=== PATIENT | female | born 1945 | race Caucasian/White ===

== ENCOUNTER → 2018-11-06 11:29 | Outpatient (CLI) | payer OTHER, SELFPAY ==
--- NOTE | 2018-11-06 | DI.MG.S_ITS ---
BILATERAL DIGITAL SCREENING MAMMOGRAM 3D/2D WITH CAD: 11/06/2018 CLINICAL: Routine screening. Comparison is made to exams dated: 03/22/2017 mammogram, 10/23/2014 mammogram, and 03/18/2014 mammogram - [facility]. There are scattered fibroglandular elements in both breasts. Current study was also evaluated with a Computer Aided Detection (CAD) system. No significant masses, calcifications, or other findings are seen in either breast. There has been no significant interval change. IMPRESSION: NEGATIVE There is no mammographic evidence of malignancy. A 1 year screening mammogram is recommended. This exam was interpreted at Station ID: [id number]. NOTE: For mammograms, a report in lay terms will be sent to the patient. Approximately 15% of breast malignancies will not be visualized mammographically. In the management of a palpable breast mass, a negative mammogram must not discourage biopsy of a clinically suspicious lesion. Electronically Signed By: John barnes/yobany:11/06/2018 12:30:46 letter sent: Normal Exam ACR BI-RADS Category 1: Negative 3341F
== END ==
PROVIDERS: Visit Provider Nurse Practitioner Family
DX: Z12.31 Encounter for screening mammogram for malignant neoplasm of breast (principal)
CPT/HCPCS: 77063; 77067

== ENCOUNTER 2019-08-28 11:38 | Day surgery (SDC) | payer MEDICARE, MEDICAID, SELFPAY ==
[2019-08-28] VITALS (8 sets, daily range): BP systolic 104–133; BP diastolic 61–87; PULSE 82–103; RESP 13–16; TEMP 36.4–36.7; O2SAT 94–99; BMI 31.1
--- NOTE | 2019-08-28 | PATH_ITS ---
[facility] Accession Number: [id number] . 01 Material submitted: . PART A: colon - CECAL POLYP PART B: colon - COLON POLYP AT 15CM . 01 Clinical history: . SCREENING COLONOSCOPY A: ? LIPOMA . 02 Diagnosis: A. Cecal Polyp: Submucosal lipoma. . B. Colon Polyp at 15 cm: Hyperplastic polyp. MRV 08/30/2019 1554 Local . 02 Electronically signed: . Precious Bustos MD, Pathologist NPI- [id number] . 01 Gross description: . Part A: CECAL POLYP: Received in formalin is 1 fragment(s) of clark, soft tissue measuring 1.2 x 0.7 x 0.2 cm which is inked, serially sectioned and submitted entirely in 1 cassette(s) Part B: COLON POLYP AT 15CM: Received in formalin is 1 fragment(s) of clark, soft tissue measuring 0.4 x 0.3 x 0.3 cm which is inked, bisected and submitted entirely in 1 cassette(s) /QBJ 08/29/2019 0338 Local . 02 Pathologist provided ICD-10: K63.5, Z12.11 . 02 CPT . 994961, [id number] Performed at: 01 [facility] [address] [facility][note 3], [place], [place] [id number] MD Go Santana MD Phone: [phone] Performed at: 02 [facility] [address] [place], [place] [id number] MD Sanam Han MD Phone: [phone]
[2019-08-28] MEDS: SODIUM CHLORIDE 0.9% 1,000 ML 200 ML IV (12:21)
--- NOTE | 2019-08-28 12:58 | PM.HP.1 ---
History of Present Illness History of Present Illness Date Patient Seen: 08/28/19 Time Patient Seen: 12:59 Chief complaint: [id number] SCREENING COLONOSCOPY Narrative: This is a 73-year-old woman with history of screening colonoscopy 10 years ago for which she was told to have a follow-up colonoscopy in 10 years. She is here for her follow-up screening. She denies any melena, hematochezia, unexplained weight loss, or unexplained abdominal pain. She has history of diverticulosis, diverticulitis and constipation. She takes medication for high blood pressure. She denies any other major medical problems. She does have obstructive sleep apnea and is awaiting her CPAP machine to be ordered. ROS: Thirteen system review is otherwise negative other than as mentioned below and in HPI. PE: GENERAL: Well groomed and cooperative. Appears stated age. Answers questions promptly and appropriately. Vital signs noted. HENT: Normocephalic, atraumatic. Hearing intact. Oral mucosa is pink and moist. EYES: Conjunctiva pink, sclera white, no periorbital swelling. CARDIOVASCULAR: Regular rate. No pedal edema. RESPIRATORY: Non-tachypneic, breathing comfortably on room air. GASTROINTESTINAL: Abdomen soft and non-distended GENITALURINARY: No flank tenderness. MUSCULOSKELETAL: Equal tone and mass bilaterally. SKIN: Warm, dry, soft, appropriate color for ethnicity. No other lesions, rashes, or wounds. NEURO: Alert and Oriented X 3. No gross sensory deficits, or cognitive issues. PSYCH: Appropriate affect and mood. Patient History Medical History Fatigue (Chronic) Obesity (BMI 30-39.9) (Chronic) Obstructive sleep apnea (Chronic) Surgical History Status post dilation and curettage Status post tubal ligation Family & Social History Family History Grandfather Heart disease Grandmother Stroke Grandfather Heart disease Grandmother Diabetes mellitus Heart disease Social History: household members none Tobacco & Substance use: Smoking Status Never smoker alcohol intake current alcohol intake frequency holiday/special occasion Substance Use Type does not use Meds Home Medications and Allergies Home Medications Medication Instructions Recorded Confirmed Type amlodipine 5 mg PO DAILY 08/28/19 08/28/19 History Allergies Allergy/AdvReac Type Severity Reaction Status Date / Time No Known Allergies Allergy Unknown Uncoded 08/28/19 12:04 Exam Vital Signs (past 8 hours): - 08/28/19 12:05 Temperature 97.5 F L Pulse Rate 103 H Respiratory Rate 16 Blood Pressure 133/87 Pulse Oximetry 98 Oxygen Delivery Method Room Air Assessment & Plan Assessment and plan (1) At average risk for colon cancer: Current visit: Yes Status: Acute Assessment & Plan narrative: This is a 73-year-old woman here for screening colonoscopy. Risks and benefits of colonoscopy were discussed including risk of bleeding, perforation, need for additional procedures. The patient desires to proceed with her colonoscopy procedure. Time Spent With Patient Time with patient: 15-24 minutes Quality VTE Deep Vein Thrombosis/Pulmonary Embolism Present on Admission: No
--- NOTE | 2019-08-28 13:48 | PM.OP.ENDO ---
Operative Date/Time/Diagnoses Date of procedure: 08/28/19 Time of procedure: 13:48 Pre-op diagnosis: Average risk for colon cancer, history of diverticulosis, diverticulitis Post-op diagnosis: other (Pedunculated cecal polyp, likely lipoma. Adenomatous rectal polyp, diverticulosis) Procedure & Clinicians Study performed: Colonoscopy, rectal polypectomy with hot snare, biopsy of pedunculated lipomatous appearing cecal mass Same procedure as scheduled: Yes Indications: Average risk for colon cancer, 10 years since last screening colonoscopy Surgeon: Samira Oseguera Procedure Notes SCOAP/Timeout: Performed Procedure in detail: The patient was brought to the room and placed in left lateral decubitus position with all bony prominences padded. A time-out was performed and then the patient was given procedural sedation starting with [4] mg of Versed and [100] mcg of fentanyl. A total of 4 mg of Versed and 200 micro g of fentanyl were given for the entire procedure. Vitals were monitored throughout the procedure and remained stable. Once adequately sedated the procedure was begun. A rectal exam was performed revealing [no abnormalities]. The colonoscope was then introduced to the rectum and advanced to the cecum in the usual fashion. []The cecum was identified by the appendiceal orifice, the mucosal tri-fold, and the ileocecal valve. There was a large pedunculated mass at the ileocecal valve, which appeared like a submucosal lipoma. It had a wide base, and because of the location in the cecum, and the cecum being very thin walled, the decision was made to biopsy the top of it, rather than trying to transect the entire thing at its base. Hot snare was used to transect it across the middle of the mass, and a large biopsy specimen was retrieved with the endoscopic retrieval net. The there was good hemostasis. The scope was then retracted while rotating side to side and examining each mucosal fold. In the rectum a 1 cm adenomatous appearing polyp was seen at 15 cm from the anal verge, this was removed with hot snare. The patient was noted to have significant diverticulosis throughout the descending and sigmoid colon, but no signs of active diverticulitis. [] At the conclusion of the procedure retroflexion was performed and [small grade 1-2 internal hemorrhoids without stigmata of bleeding were seen]. The scope was then withdrawn from the rectum the procedure was concluded. The patient tolerated the procedure well and was transferred to the PACU in stable condition. Scope withdrawal time: 26 Sedation minutes: 43 Findings: diverticulosis and polyp Specimen(s): other (Biopsy of Lipomatous appearing cecal polyp, adenomatous appearing rectal polyp, completely removed) Complications: none Impression: Pedunculated nonobstructing wide-based polyp in the cecum, which is likely a lipoma, adenomatous appearing rectal polyp, extensive diverticulosis with no signs of active diverticulitis Post-procedure Recommendations: Other recommendation (Follow-up recommendation will depend on biopsy results) Follow up: as needed Disposition: PACU
[2019-08-28] MEDS: MIDAZOLAM 5 MG/5 ML VIAL IV (13:52)
[2019-08-28] MEDS: fentaNYL 250 MCG/5 ML INJ IV (13:53)
== END 2019-08-28 14:30 | disposition home or self-care (01) ==
PROVIDERS: PCP Family Medicine; Referring Provider Family Medicine; Visit Provider Surgery
PROC: 0DJD8ZZ Inspection of Lower Intestinal Tract, Via Natural or Artificial Opening Endoscopic (ICD-10-PCS; CPT 45378; principal; 2019-08-28 13:00)
DX: Z12.11 Encounter for screening for malignant neoplasm of colon (principal); K57.30 Diverticulosis of large intestine without perforation or abscess without bleeding; K63.5 Polyp of colon; D17.5 Benign lipomatous neoplasm of intra-abdominal organs
CPT/HCPCS: 45380; 99152; 99153; J2250; J3010

== ENCOUNTER 2019-12-20 18:10 | Emergency (ER) | payer MEDICARE, MEDICAID, SELFPAY ==
[2019-12-20 18:18] VITALS: BP 168/85; PULSE 104; RESP 15; TEMP 36.1; O2SAT 98; BMI 29.2
--- NOTE | 2019-12-20 19:49 | DI.US.S_ITS ---
PROCEDURE: US PERIPH VENOUS LOW EXTREM BI INDICATIONS: EDEMA TECHNIQUE: Real-time imaging, as well as color and pulse Doppler interrogation, were performed of the deep veins of both legs from the inguinal ligament to the popliteal fossa. COMPARISON: None. FINDINGS: Right: The common femoral, femoral and popliteal veins are normally compressible, and free of intraluminal thrombus. Color and pulse Doppler demonstrate normal phasic intravascular flow. There is normal augmentation response to distal compression maneuver. Left: The common femoral, femoral and popliteal veins are normally compressible, and free of intraluminal thrombus. Color and pulse Doppler demonstrate normal phasic intravascular flow. There is normal augmentation response to distal compression maneuver. IMPRESSION: No evidence of bilateral lower extremity DVT. Dictated by: Cari Martinez M.D. on 12/20/2019 at 21:13 Approved by: Cari Martinez M.D. on 12/20/2019 at 21:13
--- NOTE | 2019-12-20 19:52 | ED_ITS ---
HPI - Extremity Problem <Rell Otero MD - Last Filed: 12/21/19 07:59> General Chief complaint: Extremity Problem,Nontraumatic Stated complaint: swelling left leg Time Seen by Provider: 12/20/19 19:44 Source: patient Mode of arrival: Ambulatory Limitations: no limitations History of Present Illness HPI Narrative: CC: Asymmetrical swelling of her legs. HPI: The patient is a 74-year-old female who denies that she has had any chest pain cough shortness of breath difficulty in breathing, history of congestive heart failure myocardial infarction who was sent to the emergency department to be evaluated for asymmetrical swelling of her leg by Dr. Vázquez from [facility]. The patient denies any fall or injury to her legs. She denies a history of kidney failure. She has had no shortness of breath and no chest pain. She has had no fever chills or sweats. She has had no abdominal pain nausea or vomiting. She denies any urinary symptomatology. Related Data Home Medications Medication Instructions Recorded Confirmed amlodipine 5 mg PO DAILY 08/28/19 08/28/19 Allergies Allergy/AdvReac Type Severity Reaction Status Date / Time No Known Drug Allergies Allergy Verified 12/20/19 18:18 Review of Systems <Rell Otero MD - Last Filed: 12/21/19 07:59> Review of Systems Narrative: Review of systems were all negative except for those mentioned in the history of present illness. Patient History <Rell Otero MD - Last Filed: 12/21/19 07:59> Medical History Fatigue (Chronic) Obesity (BMI 30-39.9) (Chronic) Obstructive sleep apnea (Chronic) Surgical History Status post dilation and curettage Status post tubal ligation Family History Grandfather Heart disease Grandmother Stroke Grandfather Heart disease Grandmother Diabetes mellitus Heart disease Social History household members: none Smoking Status: Never smoker alcohol intake: current Smoking Status: Never smoker alcohol intake frequency: holidays/special occasions only Substance Use Type: does not use Exam <Rell Otero MD - Last Filed: 12/21/19 07:59> Narrative Exam Narrative: PHYSICAL EXAM: CONSTITUTIONAL: Awake, Alert, Oriented, Coherent, Cooperative in NAD. Does not appear toxic or ill. HEAD: AT/NC EENT: PERRL, FROM of eyes, no discharge, no nystagmus NECK: Supple, no obvious JVD, Trachea is midline without stridor, no palpable LN. SPINE: Palpationof the cervical, Thoracic, Lumbar or Sacral spine reveals no gross deformity or tenderness. No CVA tenderness. THORAX: No deformity, retractions, chest wall tenderness. LUNGS: Clear, symmetrical breath sounds without respiratory distress. HEART: Normal heart tones, regular rhythm and rate without murmur. ABDOMEN: Soft, non-tender, normal bowel sounds without guarding, rebound, rigidity or palpable mass. EXTREMITIES: The patient has asymmetrical swelling of her legs. The left leg is more swollen than the right leg. There is no significant calf tenderness on palpation of either leg. The patient has trace pitting edema bilaterally. SKIN: No rash, bruising, petechiae or purpura. NEURO: Awake, alert, oriented, conversive, cranial nerves II-XII are symmetrical , moves all 4 extremities and is ambulatory. Initial Vital Signs Initial Vital Signs: Vital Signs Temperature 97.0 F L 12/20/19 18:18 Pulse Rate 104 H 12/20/19 18:18 Respiratory Rate 15 12/20/19 18:18 Blood Pressure 168/85 H 12/20/19 18:18 Pulse Oximetry 98 12/20/19 18:18 <Pete Rose MD - Last Filed: 12/21/19 01:24> Initial Vital Signs Initial Vital Signs: Vital Signs Temperature 97.0 F L 12/20/19 18:18 Pulse Rate 104 H 12/20/19 18:18 Respiratory Rate 15 12/20/19 18:18 Blood Pressure 168/85 H 12/20/19 18:18 Pulse Oximetry 98 12/20/19 18:18 Course <Rell Otero MD - Last Filed: 12/21/19 07:59> Course Course Narrative: [address] 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 The patient will be discharged home to be seen in follow-up by Dr. Vázquez. The patient does not have an elevated BNP and her kidney function is normal. The patient will be placed on a 2 L fluid restriction and follow-up with her primary care physician. Orders Ordered: ED Orders 12/20/19 19:49 perip venous low extrem bi Stat 12/20/19 20:00 Basic Metabolic Panel Stat Complete Blood Count AUTO DIFF Stat NT-proBNP (BNP-Adult 18+) Stat Vital Signs Vital signs: Vital Signs - 8 hr 12/20/19 18:18 12/20/19 19:56 12/20/19 21:10 Temperature 97.0 F L Pulse Rate 104 H 76 Pulse Rate [Left Dorsalis Pedis] 78 Respiratory Rate 15 18 Blood Pressure 168/85 H Blood Pressure [Right Arm] 142/87 H Pulse Oximetry 98 98 <Pete Rose MD - Last Filed: 12/21/19 01:24> Orders Ordered: ED Orders 12/20/19 19:49 [facility] venous low extrem bi Stat 12/20/19 20:00 Basic Metabolic Panel Stat Complete Blood Count AUTO DIFF Stat NT-proBNP (BNP-Adult 18+) Stat Vital Signs Vital signs: Vital Signs - 8 hr 12/20/19 18:18 12/20/19 19:56 12/20/19 21:10 Temperature 97.0 F L Pulse Rate 104 H 76 Pulse Rate [Left Dorsalis Pedis] 78 Respiratory Rate 15 18 Blood Pressure 168/85 H Blood Pressure [Right Arm] 142/87 H Pulse Oximetry 98 98 MDM - Extremity (Nontraumatic) <Rell Otero MD - Last Filed: 12/21/19 07:59> Lab Data Result diagrams: 12/20/19 20:00 12/20/19 20:00 Labs: Lab Results 12/20/19 12/20/19 Range/Units 20:00 20:00 WBC 6.0 (4.5-11.0) X10^3/uL RBC 4.00 (4.0-5.2) X10^6/uL Hgb 12.4 (12.0-16.0) g/dL Hct 36.6 (36-46) % MCV 91.5 (80-100) fL MCH 31.1 (26-34) PG MCHC 34.0 (30-36) % RDW 13.7 (11.6-14.8) % Plt Count 221 (150-400) X10^3/uL Neut % (Auto) 62.2 (50-75) % Lymph % (Auto) 29.1 (25-40) % [place] % (Auto) 6.4 (3-14) % Eos % (Auto) 1.4 L (2-4) % Baso % (Auto) 0.9 (0-2) % Neut # (Auto) 3700 (0903-9678) /uL Lymph # (Auto) 1700 (4245-7039) /uL [place] # (Auto) 400 (0-900) /uL Eos # (Auto) 100 (0-450) /uL Baso # (Auto) 100 (0-100) /uL Sodium 138 (137-145) mmol/L Potassium 4.3 (3.4-5.1) mmol/L Chloride 105 (98-107) mmol/L Carbon Dioxide 26 (22-32) mmol/L BUN 15 (7-17) mg/dL Creatinine 0.61 (0.52-1.04) mg/dL Estimated GFR > 60.0 (>60) mL/min BUN/Creatinine Ratio 24.6 H (6-22) Glucose 98 (80-110) mg/dL Calcium 9.2 (8.4-10.2) mg/dL NT-Pro-B Natriuret Pep 56 (<450) pg/mL <Pete Rose MD - Last Filed: 12/21/19 01:24> Lab Data Labs: Lab Results 12/20/19 12/20/19 Range/Units 20:00 20:00 WBC 6.0 (4.5-11.0) X10^3/uL RBC 4.00 (4.0-5.2) X10^6/uL Hgb 12.4 (12.0-16.0) g/dL Hct 36.6 (36-46) % MCV 91.5 (80-100) fL MCH 31.1 (26-34) PG MCHC 34.0 (30-36) % RDW 13.7 (11.6-14.8) % Plt Count 221 (150-400) X10^3/uL Neut % (Auto) 62.2 (50-75) % Lymph % (Auto) 29.1 (25-40) % [place] % (Auto) 6.4 (3-14) % Eos % (Auto) 1.4 L (2-4) % Baso % (Auto) 0.9 (0-2) % Neut # (Auto) 3700 (9952-7635) /uL Lymph # (Auto) 1700 (4146-4711) /uL [place] # (Auto) 400 (0-900) /uL Eos # (Auto) 100 (0-450) /uL Baso # (Auto) 100 (0-100) /uL Sodium 138 (137-145) mmol/L Potassium 4.3 (3.4-5.1) mmol/L Chloride 105 (98-107) mmol/L Carbon Dioxide 26 (22-32) mmol/L BUN 15 (7-17) mg/dL Creatinine 0.61 (0.52-1.04) mg/dL Estimated GFR > 60.0 (>60) mL/min BUN/Creatinine Ratio 24.6 H (6-22) Glucose 98 (80-110) mg/dL Calcium 9.2 (8.4-10.2) mg/dL NT-Pro-B Natriuret Pep 56 (<450) pg/mL MDM Narrative Medical decision making narrative: The patient was evaluated by Dr Otero prior to change of shift. The plan was for me to review the ultrasound result and complete the patient's care. However, Dr. Otero completed care prior to his departure from the hospital. I did not see this patient. Discharge Plan Departure Patient Disposition: Home Clinical Impression: Left leg swelling Discharge Date/Time: 12/20/19 21:39 Instructions: DI for Peripheral Edema, Unilateral Activity Restrictions/Additional Instructions: 1. Your kidney function, electrolytes, and BNP ( a measure of Congestive heart Failure) are all within normal limits. You need to follow-up with Dr. Vázquez for his recommendations. 2. Ultrasounds of both legs were performed which did not reveal any evidence of a blood clot in either leg. 3. Until you are able to see Dr. Vázquez you need to restrict your total fluid intake to 2 L per day and elevate your legs as often as possible to lower the swelling in your legs. Prescriptions: No Action amlodipine 5 mg Tablet 5 mg PO DAILY RF: 0 Referrals: Kelly Rosa MD [Primary Care Provider] -
[2019-12-20 19:56] VITALS: PULSE 78
--- NOTE | 2019-12-20 19:58 | PC.NURSE ---
pt reports she felt like she may have pulled her left calf two weeks ago while working in the garden. increase swelling and pain noted since then. Swelling is less in the morning upon waking and worsens through the day. patient is able to bear weight just reports tightness Patient denies chest pain or SOB. Denies fevers or chills. No obvious redness noted.
[2019-12-20 20:15] LABS: Add Manual Diff / Slide Review NO; Basophils Absolute Auto 100 /uL (0-100); Basophils Percent Auto 0.9 % (0-2); Eosinophils Absolute Auto 100 /uL (0-450); Eosinophils Percent Auto 1.4 % (2-4); Hematocrit 36.6 % (36-46); Hemoglobin 12.4 g/dL (12.0-16.0); Lymphocytes Absolute Auto 1700 /uL (1100-4500); Lymphocytes Percent Auto 29.1 % (25-40); Mean Corpuscular Hemoglobin 31.1 PG (26-34); Mean Corpuscular Volume 91.5 fL (80-100); Monocytes Absolute Auto 400 /uL (0-900); Monocytes Percent Auto 6.4 % (3-14); Neutrophils Absolute Auto 3700 /uL (1500-7000); Neutrophils Percent Auto 62.2 % (50-75); Platelet Count 221 X10^3/uL (150-400); Red Cell Distribution Width 13.7 % (11.6-14.8)
[2019-12-20 20:27] LABS: BUN Creatinine Ratio 24.6 (6-22); Blood Urea Nitrogen 15 mg/dL (7-17); Calcium 9.2 mg/dL (8.4-10.2); Carbon Dioxide 26 mmol/L (22-32); Chloride 105 mmol/L (98-107); Estimated Glomerular Filt Rate > 60.0 mL/min (>60); Glucose 98 mg/dL (80-110); HEMOLYSIS < 15 (0-50); Potassium 4.3 mmol/L (3.4-5.1); Sodium 138 mmol/L (137-145)
[2019-12-20 20:36] LABS: NT-proBNP (BNP-Adult 18+) 56 pg/mL (<450)
[2019-12-20 21:10] VITALS: BP 142/87; PULSE 76; RESP 18; O2SAT 98
== END 2019-12-20 21:39 | disposition home or self-care (01) ==
PROVIDERS: Emergency Provider Emergency Medicine; PCP Family Medicine
DX: M79.89 Other specified soft tissue disorders (principal); I50.9 Heart failure, unspecified; I25.2 Old myocardial infarction
CPT/HCPCS: 36415; 80048; 83880; 85025; 93970; 99281; 99284

== ENCOUNTER → 2020-12-05 10:31 | Outpatient (CLI) | payer MEDICARE, MEDICAID, SELFPAY ==
[2020-12-05 19:33] LABS: Alanine Aminotransferase 18 IU/L (<35); Albumin Globulin Ratio 1.5 (1.0-2.8); Alkaline Phosphatase 85 U/L (38-126); Aspartate Aminotransferase 22 IU/L (14-36); BUN Creatinine Ratio 32.3 (6-22); Bilirubin Total 0.5 mg/dL (0.2-1.3); Blood Urea Nitrogen 20 mg/dL (7-17); Calcium 8.9 mg/dL (8.4-10.2); Carbon Dioxide 25 mmol/L (22-32); Chloride 105 mmol/L (98-107); Cholesterol 249 mg/dL (140-199); Estimated Glomerular Filt Rate > 60.0 mL/min (>60); Globulin 2.7 g/dL (1.7-4.1); Glucose 107 mg/dL (80-110); HDL Cholesterol 50 mg/dL (40-60); HEMOLYSIS < 15 (0-50); LDL Cholesterol Calculated 170 mg/dL (<100); Potassium 4.4 mmol/L (3.4-5.1); Sodium 139 mmol/L (137-145); Total Protein 6.7 g/dL (6.3-8.2); Triglycerides 143 mg/dL (35-150)
[2020-12-05 19:42] LABS: Add Manual Diff / Slide Review NO; Basophils Absolute Auto 0 /uL (0-100); Basophils Percent Auto 1.1 % (0-2); Eosinophils Absolute Auto 100 /uL (0-450); Eosinophils Percent Auto 2.5 % (2-4); Hematocrit 36.1 % (36-46); Hemoglobin 12.1 g/dL (12.0-16.0); Lymphocytes Absolute Auto 1500 /uL (1100-4500); Lymphocytes Percent Auto 34.8 % (25-40); Mean Corpuscular HGB Conc 33.5 % (30-36); Mean Corpuscular Hemoglobin 30.7 PG (26-34); Mean Corpuscular Volume 91.5 fL (80-100); Monocytes Absolute Auto 300 /uL (0-900); Monocytes Percent Auto 6.9 % (3-14); Neutrophils Absolute Auto 2300 /uL (1500-7000); Neutrophils Percent Auto 54.7 % (50-75); Platelet Count 214 X10^3/uL (150-400); Red Blood Cell Count 3.95 X10^6/uL (4.0-5.2); Red Cell Distribution Width 13.3 % (11.6-14.8); White Blood Cell Count 4.3 X10^3/uL (4.5-11.0)
[2020-12-05 20:03] LABS: Hemoglobin A1C% w Est Avg Glu 5.7 % (4.0-6.0); TSH w/ Reflex to FT4 2.52 uIU/mL (0.47-4.68)
== END ==
PROVIDERS: PCP Family Medicine; Visit Provider Family Medicine
DX: E78.5 Hyperlipidemia, unspecified (principal); M85.89 Other specified disorders of bone density and structure, multiple sites; R03.0 Elevated blood-pressure reading, without diagnosis of hypertension; R73.03 Prediabetes
CPT/HCPCS: 80053; 80061; 83036; 84443; 85025

== ENCOUNTER → 2021-01-06 12:37 | Outpatient (CLI) | payer MEDICARE, MEDICAID, SELFPAY | PROVIDERS: PCP Family Medicine; Referring Provider Family Medicine; Visit Provider Family Medicine | DX: M85.852 Other specified disorders of bone density and structure, left thigh (principal); Z78.0 Asymptomatic menopausal state | CPT/HCPCS: 77080 ==

== ENCOUNTER → 2021-04-29 09:45 | Outpatient (CLI) | payer MEDICARE, MEDICAID, SELFPAY ==
[2021-04-29 19:04] LABS: Cholesterol 237 mg/dL (140-199); HDL Cholesterol 49 mg/dL (40-60); LDL Cholesterol Calculated 134 mg/dL (<100); Triglycerides 271 mg/dL (35-150)
== END ==
PROVIDERS: PCP Family Medicine; Visit Provider Family Medicine
DX: Z00.00 Encounter for general adult medical examination without abnormal findings (principal)
CPT/HCPCS: 80061

== ENCOUNTER → 2022-03-15 13:05 | Outpatient (CLI) | payer MEDICARE, MEDICAID, SELFPAY ==
[2022-03-15 20:36] LABS: Hep C Virus Ab w/Reflex Quant NEGATIVE s/c (NEGATIVE)
== END ==
PROVIDERS: PCP Family Medicine; Visit Provider Physician Assistant
DX: Z11.59 Encounter for screening for other viral diseases (principal)
CPT/HCPCS: 86803

== ENCOUNTER → 2022-05-10 11:44 | Outpatient (CLI) | payer MEDICARE, MEDICAID, SELFPAY ==
[2022-05-10 20:19] LABS: Alanine Aminotransferase 21 IU/L (<35); Albumin 4.2 g/dL (3.5-5.0); Albumin Globulin Ratio 1.4 (1.0-2.8); Alkaline Phosphatase 80 U/L (38-126); Aspartate Aminotransferase 30 IU/L (14-36); BUN Creatinine Ratio 29.2 (6-22); Bilirubin Total 0.6 mg/dL (0.2-1.3); Blood Urea Nitrogen 21 mg/dL (7-17); Calcium 8.4 mg/dL (8.4-10.2); Carbon Dioxide 28 mmol/L (22-32); Chloride 103 mmol/L (98-107); Cholesterol 273 mg/dL (140-199); Estimated Glomerular Filt Rate > 60 mL/min (>60); Glucose 111 mg/dL (80-110); HDL Cholesterol 39 mg/dL (40-60); HEMOLYSIS < 15 (0-50); LDL Cholesterol Calculated 198 mg/dL (<100); Potassium 4.5 mmol/L (3.4-5.1); Sodium 138 mmol/L (137-145); Total Protein 7.2 g/dL (6.3-8.2); Triglycerides 181 mg/dL (35-150)
== END ==
PROVIDERS: PCP Family Medicine; Visit Provider Family Medicine
DX: E78.5 Hyperlipidemia, unspecified (principal); R03.0 Elevated blood-pressure reading, without diagnosis of hypertension
CPT/HCPCS: 80053; 80061

== ENCOUNTER → 2022-07-27 10:02 | Outpatient (CLI) | payer MEDICARE, MEDICAID, SELFPAY ==
[2022-07-27 19:35] LABS: Hemoglobin A1C% w Est Avg Glu 5.9 % (4.0-6.0)
[2022-07-27 19:38] LABS: Add Manual Diff / Slide Review NO; Alanine Aminotransferase 24 IU/L (<35); Albumin 4.2 g/dL (3.5-5.0); Albumin Globulin Ratio 1.5 (1.0-2.8); Alkaline Phosphatase 89 U/L (38-126); Aspartate Aminotransferase 22 IU/L (14-36); BUN Creatinine Ratio 32.4 (6-22); Basophils Absolute Auto 100 /uL (0-100); Basophils Percent Auto 1.1 % (0-2); Bilirubin Total 0.5 mg/dL (0.2-1.3); Blood Urea Nitrogen 22 mg/dL (7-17); Calcium 8.4 mg/dL (8.4-10.2); Carbon Dioxide 27 mmol/L (22-32); Chloride 102 mmol/L (98-107); Cholesterol 196 mg/dL (140-199); Eosinophils Absolute Auto 100 /uL (0-450); Estimated Glomerular Filt Rate > 60 mL/min (>60); Globulin 2.8 g/dL (1.7-4.1); Glucose 105 mg/dL (80-110); HDL Cholesterol 44 mg/dL (40-60); HEMOLYSIS < 15 (0-50); Hematocrit 36.6 % (36-46); Hemoglobin 12.2 g/dL (12.0-16.0); LDL Cholesterol Calculated 128 mg/dL (<100); Lymphocytes Absolute Auto 1300 /uL (1100-4500); Lymphocytes Percent Auto 28.5 % (25-40); Mean Corpuscular HGB Conc 33.3 % (30-36); Mean Corpuscular Hemoglobin 30.5 PG (26-34); Mean Corpuscular Volume 91.4 fL (80-100); Monocytes Absolute Auto 300 /uL (0-900); Monocytes Percent Auto 6.7 % (3-14); Neutrophils Absolute Auto 2800 /uL (1500-7000); Neutrophils Percent Auto 61.7 % (50-75); Platelet Count 188 X10^3/uL (150-400); Potassium 4.5 mmol/L (3.4-5.1); Red Cell Distribution Width 13.2 % (11.6-14.8); Sodium 138 mmol/L (137-145); Triglycerides 121 mg/dL (35-150); White Blood Cell Count 4.6 X10^3/uL (4.5-11.0)
== END ==
PROVIDERS: PCP Family Medicine; Visit Provider Family Medicine
DX: E78.5 Hyperlipidemia, unspecified (principal); R03.0 Elevated blood-pressure reading, without diagnosis of hypertension; R73.03 Prediabetes
CPT/HCPCS: 80053; 80061; 83036; 85025

== ENCOUNTER → 2022-07-29 12:17 | Outpatient (CLI) | payer MEDICARE, MEDICAID, SELFPAY ==
--- NOTE | 2022-07-29 12:18 | DI.MG.S_ITS ---
BILATERAL DIGITAL SCREENING MAMMOGRAM 3D/2D WITH CAD: 07/29/2022 CLINICAL: Routine screening. Comparison is made to exams dated: 11/06/2018 mammogram, 03/22/2017 mammogram, 10/23/2014 mammogram, 03/28/2014 mammogram - [facility], and 05/06/2020 mammogram - outside. There are scattered areas of fibroglandular density in both breasts (category b / 25%-50% glandular tissue). Current study was also evaluated with a Computer Aided Detection (CAD) system. No significant masses, calcifications, or other findings are seen in either breast. There has been no significant interval change. IMPRESSION: NEGATIVE There is no mammographic evidence of malignancy. A 1 year screening mammogram is recommended. Based on the Tyrer Cuzick model (a risk assessment model) the patient's lifetime risk is 2.0% and her 10 year risk is 0.0%. According to the ACR, ACS, and NCCN guidelines, an annual breast MRI exam along with mammogram is recommended if the patient's lifetime risk is 20% or greater. This exam was interpreted at Station ID: [id number]. NOTE: For mammograms, a report in lay terms will be sent to the patient. Approximately 15% of breast malignancies will not be visualized mammographically. In the management of a palpable breast mass, a negative mammogram must not discourage biopsy of a clinically suspicious lesion. Electronically Signed By: Jose Angel Toth M.D., jr/yobany:07/29/2022 12:38:52 letter sent: Normal Exam ACR BI-RADS Category 1: Negative 3341F
== END ==
PROVIDERS: PCP Family Medicine; Referring Provider Family Medicine; Visit Provider Family Medicine
DX: Z12.31 Encounter for screening mammogram for malignant neoplasm of breast (principal)
CPT/HCPCS: 77063; 77067

== ENCOUNTER → 2023-08-08 13:28 | Outpatient (CLI) | payer OTHER, MEDICAID, SELFPAY ==
[2023-08-08 19:18] LABS: Alanine Aminotransferase 16 IU/L (<35); Albumin Globulin Ratio 1.4 (1.0-2.8); Alkaline Phosphatase 75 U/L (38-126); Aspartate Aminotransferase 21 IU/L (14-36); BUN Creatinine Ratio 29.9 (6-22); Bilirubin Total 0.6 mg/dL (0.2-1.3); Blood Urea Nitrogen 20 mg/dL (7-17); Calcium 9.2 mg/dL (8.4-10.2); Carbon Dioxide 27 mmol/L (22-32); Chloride 102 mmol/L (98-107); Estimated Glomerular Filt Rate > 60 mL/min (>60); Globulin 2.9 g/dL (1.7-4.1); Glucose 93 mg/dL (80-110); HEMOLYSIS < 15 (0-50); Potassium 4.3 mmol/L (3.4-5.1); Sodium 136 mmol/L (137-145); Total Protein 6.9 g/dL (6.3-8.2)
[2023-08-08 19:31] LABS: LDL Cholesterol Direct 108 mg/dL (<100)
[2023-08-08 20:04] LABS: Hemoglobin A1C% w Est Avg Glu 5.9 % (4.0-6.0)
== END ==
PROVIDERS: PCP Family Medicine; Visit Provider Family Medicine
DX: R73.03 Prediabetes (principal); R03.0 Elevated blood-pressure reading, without diagnosis of hypertension; R74.01 Elevation of levels of liver transaminase levels; E78.2 Mixed hyperlipidemia
CPT/HCPCS: 80053; 83036; 83721

== ENCOUNTER → 2023-12-09 14:18 | Outpatient (CLI) | payer MEDICARE, MEDICAID, SELFPAY ==
--- NOTE | 2023-12-09 14:20 | DI.MG.S_ITS ---
BILATERAL DIGITAL SCREENING MAMMOGRAM 3D/2D WITH CAD: 12/09/2023 CLINICAL: Routine screening. Family history of breast cancer. Comparison is made to exams dated: 07/29/2022 mammogram - [facility], 05/06/2020 mammogram - outside, and 11/06/2018 mammogram - [facility]. Both breasts are heterogeneously dense, which may obscure small masses (category c / 51-75% glandular tissue). Current study was also evaluated with a Computer Aided Detection (CAD) system. No significant masses, calcifications, or other findings are seen in either breast. There has been no significant interval change. IMPRESSION: NEGATIVE There is no mammographic evidence of malignancy. A 1 year screening mammogram is recommended. Based on the Tyrer Cuzick model (a risk assessment model) the patient's lifetime risk is 4.3% and her 10 year risk is 0.0%. According to the ACR, ACS, and NCCN guidelines, an annual breast MRI exam along with mammogram is recommended if the patient's lifetime risk is 20% or greater. This exam was interpreted at Station ID: [id number]. NOTE: For mammograms, a report in lay terms will be sent to the patient. Approximately 15% of breast malignancies will not be visualized mammographically. In the management of a palpable breast mass, a negative mammogram must not discourage biopsy of a clinically suspicious lesion. Electronically Signed By: Aldo saxena/yobany:12/09/2023 15:11:41 letter sent: Normal Exam ACR BI-RADS Category 1: Negative 3341F
== END ==
PROVIDERS: PCP Family Medicine; Referring Provider Family Medicine; Visit Provider Family Medicine
DX: Z12.31 Encounter for screening mammogram for malignant neoplasm of breast (principal); Z80.3 Family history of malignant neoplasm of breast; R92.333 Mammographic heterogeneous density, bilateral breasts
CPT/HCPCS: 77063; 77067

== ENCOUNTER → 2024-05-07 13:34 | Outpatient (CLI) | payer MEDICARE, MEDICAID, SELFPAY | PROVIDERS: PCP Family Medicine; Visit Provider Family Medicine | DX: N39.0 Urinary tract infection, site not specified (principal) | CPT/HCPCS: 87077; 87086; 87186 ==

== ENCOUNTER → 2024-09-05 09:02 | Outpatient (CLI) | payer OTHER, MEDICAID, SELFPAY ==
[2024-09-05 21:53] LABS: Add Manual Diff / Slide Review NO; Basophils Absolute Auto 0 /uL (0-100); Basophils Percent Auto 0.9 % (0-2); Eosinophils Absolute Auto 100 /uL (0-450); Eosinophils Percent Auto 3.1 % (2-4); Hematocrit 38.6 % (36-46); Hemoglobin 12.9 g/dL (12.0-16.0); Lymphocytes Absolute Auto 1400 /uL (1100-4500); Lymphocytes Percent Auto 34.9 % (25-40); Mean Corpuscular HGB Conc 33.5 % (30-36); Mean Corpuscular Hemoglobin 30.8 PG (26-34); Monocytes Absolute Auto 300 /uL (0-900); Monocytes Percent Auto 6.8 % (3-14); Neutrophils Absolute Auto 2200 /uL (1500-7000); Neutrophils Percent Auto 54.3 % (50-75); Platelet Count 208 X10^3/uL (150-400); Red Cell Distribution Width 13.9 % (11.6-14.8); White Blood Cell Count 4.1 X10^3/uL (4.5-11.0)
[2024-09-05 22:12] LABS: Alanine Aminotransferase 26 IU/L (<35); Albumin 4.4 g/dL (3.5-5.0); Albumin Globulin Ratio 1.8 (1.0-2.8); Alkaline Phosphatase 84 U/L (38-126); Aspartate Aminotransferase 32 IU/L (14-36); Bilirubin Total 0.8 mg/dL (0.2-1.3); Blood Urea Nitrogen 17 mg/dL (7-17); Carbon Dioxide 28 mmol/L (22-32); Chloride 103 mmol/L (98-107); Cholesterol 224 mg/dL (140-199); Estimated Glomerular Filt Rate > 60 mL/min (>60); Globulin 2.4 g/dL (1.7-4.1); Glucose 114 mg/dL (80-110); HDL Cholesterol 44 mg/dL (40-60); HEMOLYSIS 20 (0-50); LDL Cholesterol Calculated 136 mg/dL (<100); Potassium 4.2 mmol/L (3.4-5.1); Sodium 138 mmol/L (137-145); Total Protein 6.8 g/dL (6.3-8.2); Triglycerides 220 mg/dL (35-150)
[2024-09-05 22:18] LABS: Hemoglobin A1C% w Est Avg Glu 5.6 % (4.0-6.0)
[2024-09-05 22:34] LABS: Thyroid Stimulating Hormone 3.65 uIU/mL (0.47-4.68)
== END ==
PROVIDERS: PCP Family Medicine; Visit Provider Family Medicine
DX: I10 Essential (primary) hypertension (principal); E78.2 Mixed hyperlipidemia; G47.33 Obstructive sleep apnea (adult) (pediatric); R73.03 Prediabetes; E66.9 Obesity, unspecified
CPT/HCPCS: 80053; 80061; 83036; 84443; 85025

== ENCOUNTER → 2024-10-17 10:31 | Outpatient (CLI) | payer OTHER, MEDICAID, SELFPAY ==
--- NOTE | 2024-10-17 10:34 | DI.RAD.S_ITS ---
PROCEDURE: XR DEXA AXIAL SKELETON INDICATIONS: osteopenia COMPARISON: [facility], , XR DEXA AXIAL SKELETON, 01/06/2021, 12:58. FINDINGS: Lumbar Spine: Bone mineral density 1.088 g/cm2, T score 0.4 compared to 1.9. Left Femoral Neck: Bone mineral density 0.584 g/cm2, T score -2.4 compared to -1.9. Left Hip: Bone mineral density are 0.814 g/cm2, T score -1.0 compared to -1.2. Fracture Risk Calculation (when applicable): 10-year fracture risk of a major osteoporotic fracture 32 percent and of a hip fracture 22 percent. (T score greater or equal to -1.0 to: NORMAL) (T score from -1.1 to -2.4: OSTEOPENIA) (T score less than or equal to -2.5: OSTEOPOROSIS) IMPRESSION: Visual bone mineral density loss most prominent in the femoral neck now severe osteopenia. Follow-up guidelines as follows: Osteoporosis: Consider a repeat DEXA and Vertebral Fracture Assessment (VFA) exam in 2 years or sooner if medically necessary, to reassess this patient's status. Osteopenia: Consider a repeat DEXA in 2-3 years to reassess this patient's status, or if there is a new clinical indication. Normal: Consider a repeat DEXA in 5 years or sooner, or if there is a new clinical indication. All treatment decisions require clinical judgment and consideration of individual patient factors, including patient preferences, comorbidities, previous drug use, risk factors not captured in the FRAX model (e.g., frailty, falls, vitamin D deficiency, increased bone turnover, interval significant decline in bone density ) and possible under- or over-estimation of fracture risk by FRAX. In addition, the NOF Guide recommends that FDA-approved medical therapies be considered in postmenopausal women and men age >= 50 years with a: * Hip or vertebral (clinical or morphometric) fracture * T-score of <=-2.5 at the spine or hip * Ten-year fracture probability by FRAX of >= 3% for hip fracture or >=20% for major osteoporotic fracture. Dictated by: Keily Navarro M.D. on 10/17/2024 at 12:48 Approved by: Keily Navarro M.D. on 10/17/2024 at 12:49
== END ==
PROVIDERS: PCP Family Medicine; Referring Provider Family Medicine; Visit Provider Family Medicine
DX: M85.852 Other specified disorders of bone density and structure, left thigh (principal); Z78.0 Asymptomatic menopausal state
CPT/HCPCS: 77080

== ENCOUNTER → 2025-04-30 10:55 | Outpatient (CLI) | payer OTHER, MEDICAID, SELFPAY ==
[2025-04-30 18:53] LABS: Add Manual Diff / Slide Review NO; Hematocrit 35.4 % (36-46); Hemoglobin 12.1 g/dL (12.0-16.0); Lymphocytes Absolute Auto 1500 /uL (1100-4500); Mean Corpuscular HGB Conc 34.0 % (30-36); Mean Corpuscular Hemoglobin 30.9 PG (26-34); Mean Corpuscular Volume 90.9 fL (80-100); Platelet Count 205 X10^3/uL (150-400)
[2025-04-30 19:20] LABS: Alanine Aminotransferase 21 IU/L (<35); Albumin 4.2 g/dL (3.5-5.0); Albumin Globulin Ratio 1.7 (1.0-2.8); Alkaline Phosphatase 82 U/L (38-126); Blood Urea Nitrogen 20 mg/dL (7-17); Calcium 8.6 mg/dL (8.4-10.2); Carbon Dioxide 28 mmol/L (22-32); Chloride 99 mmol/L (98-107); Estimated Glomerular Filt Rate > 60 mL/min (>60); Globulin 2.5 g/dL (1.7-4.1); Glucose 133 mg/dL (70-99); HEMOLYSIS < 15 (0-50); Potassium 4.2 mmol/L (3.4-5.1); Sodium 136 mmol/L (137-145); Total Protein 6.7 g/dL (6.3-8.2)
== END ==
PROVIDERS: PCP Family Medicine; Visit Provider Family Medicine
DX: E78.2 Mixed hyperlipidemia (principal); I10 Essential (primary) hypertension; Z12.39 Encounter for other screening for malignant neoplasm of breast; M85.80 Other specified disorders of bone density and structure, unspecified site
CPT/HCPCS: 80053; 83721; 85025

== ENCOUNTER → 2025-05-14 12:58 | Outpatient (CLI) | payer OTHER, MEDICAID, SELFPAY ==
[2025-05-14 19:15] LABS: Hematocrit 36.0 % (36-46); Hemoglobin 12.1 g/dL (12.0-16.0); Mean Corpuscular HGB Conc 33.8 % (30-36); Mean Corpuscular Hemoglobin 30.9 PG (26-34); Mean Corpuscular Volume 91.5 fL (80-100); Platelet Count 205 X10^3/uL (150-400)
[2025-05-14 19:25] LABS: HEMOLYSIS 16 (0-50); Iron 108 ug/dL (37-170)
[2025-05-14 19:30] LABS: Hemoglobin A1C% w Est Avg Glu 5.9 % (4.0-6.0)
[2025-05-14 19:44] LABS: Percent Iron Saturation 31 % (15-50); Total Iron Binding Capacity 352 ug/dL (265-497); Transferrin 306 mg/dL (206-381)
[2025-05-14 20:42] LABS: Folate 19.2 ng/mL (2.76-20.0); Vitamin B12 592 pg/mL (239-931)
== END ==
PROVIDERS: PCP Family Medicine; Visit Provider Family Medicine
DX: D64.9 Anemia, unspecified (principal); I10 Essential (primary) hypertension; E78.5 Hyperlipidemia, unspecified; R73.9 Hyperglycemia, unspecified
CPT/HCPCS: 82607; 82746; 83036; 83540; 83550; 85027